=== PATIENT | male | born 1960 | race Caucasian/White ===

== ENCOUNTER 2024-06-16 05:19 | Observation (INO) | payer OTHER, MEDICARE ==
[2024-06-16] MEDS ORDERED: KETOROLAC 30 MG/ML INJ ONE (06:04)
[2024-06-16] MEDS ORDERED: ONDANSETRON 4 MG/2 ML VIAL ONE (06:04)
[2024-06-16] MEDS ORDERED: FAMOTIDINE 20 MG/2 ML VIAL IV ONE (06:04)
[2024-06-16 06:21] LABS: Absolute Eosinophils 0.1 K/uL (0-0.5); Absolute Lymphocytes (CBC) 1.4 K/uL (0.7-4.9); Absolute Monocytes 1.3 K/uL (0.1-1.3); Absolute Neutrophil 10.8 K/uL (1.8-8.0); Basophils % 0.3 % (0-1.3); Eosinophils % 0.6 % (0-4.4); Hematocrit 48.4 % (39.6-49.0); Hemoglobin 16.6 g/dL (13.6-17.9); Lymphocytes % 10.2 % (15.3-44.8); MCH 31.9 pg (27.0-35.0); MCHC 34.2 g/dL (32.0-36.0); MCV 93.2 fL (80-100); MPV 8.7 fL (7.6-11.3); Monocytes % 9.6 % (3.3-12.3); Neutrophils % 79.3 % (41.7-73.7); Platelets 230 thou/uL (152-406); Red Cell Distribution Width 12.5 % (12.1-15.2)
[2024-06-16 06:23] LABS: Specific Gravity > 1.030 (1.005-1.030); Sqamous Epithelial None Seen /HPF (None Seen); Urine Bacteria None Seen /HPF (<20); Urine Bilirubin NEGATIVE (Negative); Urine Blood Negative (Negative); Urine Clarity Clear (Clear); Urine Color Light-Yellow (Yellow); Urine Culture Reflex Order NOT NEEDED; Urine Glucose 4+ (Over) (Negative); Urine Ketones 1+ (Negative); Urine Microscopic Reflex YN ORDER UMIC; Urine Nitrite NEGATIVE (Negative); Urine Protein NEGATIVE (Negative); Urine RBC None Seen /HPF (None Seen); Urine Urobilinogen Normal (Normal); Urine WBC <5 /HPF (<5)
[2024-06-16 06:41] LABS: Albumin 3.8 g/dL (3.4-5.0); Albumin/Globulin Ratio 0.8 (1.1-1.8); Anion Gap 10.4 mEq/L (5.0-15.0); Bilirubin Total 1.4 mg/dL (0.2-1.0); Globulin 4.6 g/dL (2.3-3.5); Potassium 4.4 mEq/L (3.5-5.1); Protein, Total 8.4 g/dL (6.4-8.2)
--- NOTE | 2024-06-16 07:34 | RAD REPORT ---
EXAMINATION: CT ABDOMEN AND PELVIS WITH CONTRAST CLINICAL INDICATION: ABD PAIN TECHNIQUE: CT abdomen and pelvis was performed, after the administration of IV contrast, [facility]. Axial, sagittal and coronal reconstructions were obtained. One or more of the following dose reduction techniques were used: Automated exposure control, adjustment of the mA and k V according to patient size, and iterative reconstruction. Unless otherwise specified, incidental findings do not require dedicated imaging follow-up. COMPARISON: No prior exam. FINDINGS: LOWER CHEST: The visualized lung bases are clear. LIVER: Normal in size and contour. No focal lesion. Grossly unremarkable gallbladder. SPLEEN: Normal size. No focal lesion. PANCREAS: No mass, ductal dilation, or antonio-pancreatic fluid. ADRENALS: Normal; no mass. KIDNEYS: Normal size and contour. No hydronephrosis. GASTROINTESTINAL TRACT: There is a focally prominent 25 mm lesion seen along the medial margin of the descending colon. This appears moderately inflamed. APPENDIX: Normal appendix. LYMPH NODES: No lymphadenopathy. MUSCULOSKELETAL: No acute or suspicious osseous abnormality. ADDITIONAL FINDINGS: Small fat-containing umbilical hernia. IMPRESSION: Focally prominent 25 mm lesion projects from the ascending colon medial margin. There is moderate thi ckening of the wall and surrounding inflammation. Differential considerations would include focal acute diverticulitis or inflammatory mass. Follow-up colonoscopy would be recommended for further avis luation.
[2024-06-16] MEDS ORDERED: MORPHINE 4 MG/ML SYR IV PRN (07:43)
[2024-06-16] MEDS ORDERED: ONDANSETRON 4 MG/2 ML VIAL IV PRN (07:43)
--- NOTE | 2024-06-16 07:51 | EDPHYS ---
Physician Documentation [facility] Name: Haris Sandoval Age: 64 yrs Sex: Male : 1960 Arrival Date: 06/16/2024 Time: 05:19 Bed 2 Private MD: ED Physician Anderson Horne HPI: 06/16 07:20 This 64 yrs old Male presents to ER via Ambulatory with complaints of Stomach pain. ms3 07:20 Haris Sandoval is a 64-year-old male presenting to the emergency department with ms3 stomach pain. He reports experiencing similar stomach pain intermittently, typically after consuming greasy food. However, this episode is more severe and persistent. The pain is located on the left lower abdomen. Patient states he developed right flank pain after hitting golf balls on . The pain increases with movement. He also reports feeling slightly nauseous and having a bit of diarrhea. He has a history of type 2 diabetes.. Historical: - Allergies: 05:58 No Known Allergies; vc1 - Home Meds: 05:58 metformin 500 mg Oral tablet 2 tabs 2 times per day [Active]; Farxiga 5 mg oral tablet vc1 daily [Active]; - PMHx: 05:58 Diabetes mellitus; vc1 - PSHx: 05:58 Appendectomy; vc1 - Immunization history:: Client reports having NOT received the Covid vaccine. Flu vaccine is up to date. - Infectious Disease History:: Denies. - Social history:: Smoking status: Patient denies any tobacco usage or history of. ROS: 07:20 Constitutional: Negative for fever, and chills. Cardiovascular: Negative for chest ms3 pain, and palpitations. Respiratory: Negative for shortness of breath, cough, wheezing, and pleuritic chest pain, 07:20 MS/Extremity: Negative for injury and deformity, Skin: Negative for injury, rash, and discoloration, 07:20 Abdomen/GI: Positive for abdominal pain, nausea, Exam: 07:20 Constitutional: This is a well developed, well nourished patient who is awake, alert, ms3 and in no acute distress. Neck: Trachea midline, no cervical lymphadenopathy. Supple, full range of motion without nuchal rigidity, or vertebral point tenderness. No Meningismus. Chest/axilla: Normal chest wall appearance and motion. Nontender with no deformity. Cardiovascular: Regular rate and rhythm with a normal S1 and S2. No gallops, murmurs, or rubs. Normal PMI, no JVD. No pulse deficits. Respiratory: Lungs have equal breath sounds bilaterally, clear to auscultation and percussion. No rales, rhonchi or wheezes noted. No increased work of breathing, no retractions or nasal flaring. Abdomen/GI: Soft, non-tender, with normal bowel sounds. No distension or tympany. No guarding or rebound. No evidence of tenderness throughout. Skin: Warm, dry with normal turgor. Normal color with no rashes, no lesions, and no evidence of cellulitis. MS/ Extremity: Pulses equal, no cyanosis. Neurovascular intact. Full, normal range of motion. Vital Signs: 05:56 BP 135 / 88; Pulse 94; Resp 14; Temp 98.4; Pulse Ox 97% ; Weight 58.97 kg; Height 5 ft. vc1 5 in. ; Pain 9/10; 06:15 BP 123 / 85; Pulse 84; Resp 18; Pulse Ox 97% on R/A; ay 07:00 BP 142 / 71; Pulse 85; Resp 16; Pulse Ox 96% ; bp 09:00 BP 129 / 75; Pulse 81; Resp 16; Pulse Ox 98% ; bp 05:56 Body Mass Index 21.63 (58.97 kg, 165.1 cm) vc1 05:56 Pain Scale: Adult vc1 Aman Coma Score: 06:40 Eye Response: spontaneous(4). Motor Response: obeys commands(6). Verbal Response: ay oriented(5). Total: 15. MDM: 05:54 Medical Screening Exam initiated ms3 07:20 Differential diagnosis: bowel obstruction, diverticulitis, non-specific abd pain. ms3 07:49 Data reviewed: vital signs, nurses notes, lab test result(s), radiologic studies, and ms3 as a result, I will admit patient. Consideration of Admission/Observation Patient was admitted/placed on observation. Management of patient was discussed with the following: Hospitalist: Dr Patel. I considered the following discharge prescriptions or medication management in the emergency department Medications were administered in the Emergency Department. See MAR. Care significantly affected by the following chronic conditions: Diabetes. Counseling: I had a detailed discussion with the patient and/or guardian regarding the historical points, exam findings, and any diagnostic results supporting the discharge/admit diagnosis, lab results, radiology results, the need for further work-up and treatment in the hospital. ED course: Discussed plan for observation with patient. He understands/ agrees with plan. All questions answered.. 06/16 05:55 Order name: CBC with Diff; Complete Time: 06:48 ms3 06/16 05:55 Order name: CMP; Complete Time: 06:48 ms3 06/16 05:55 Order name: Lipase; Complete Time: 06:48 ms3 06/16 05:55 Order name: Urinalysis w/ reflexes; Complete Time: 06:48 ms3 06/16 07:47 Order name: CBC with Automated Diff EDMS 06/16 07:51 Order name: Blood Culture Adult (2) ms3 06/16 07:51 Order name: Lactate w/ 2H reflex if indic. ms3 06/16 07:51 Order name: Protime (+inr) ms3 06/16 07:51 Order name: Ptt, Activated ms3 06/16 08:47 Order name: Protime (+INR) EDMS 06/16 08:47 Order name: PTT, Activated Partial Thromb EDMS 06/16 08:54 Order name: Lactate w/ 2H reflex if indic. EDMS 06/16 05:55 Order name: CT Abd/Pelvis - IV Contrast Only; Complete Time: 08:13 ms3 06/16 07:51 Order name: EKG; Complete Time: 07:52 ms3 06/16 05:55 Order name: IV Saline Lock; Complete Time: 06:13 ms3 06/16 05:55 Order name: Labs collected and sent; Complete Time: 06:14 ms3 06/16 07:51 Order name: Accucheck; Complete Time: 08:28 ms3 06/16 07:51 Order name: Cardiac monitoring; Complete Time: 08:05 ms3 06/16 07:51 Order name: EKG - Nurse/Tech; Complete Time: 08:28 ms3 06/16 07:51 Order name: IV Saline Lock - Large Bore; Complete Time: 08:05 ms3 06/16 07:51 Order name: O2 Per Protocol; Complete Time: 08:05 ms3 06/16 07:51 Order name: O2 Sat Monitoring; Complete Time: 08:05 ms3 06/16 07:51 Order name: Vital Signs; Complete Time: 08:05 ms3 Administered Medications: 06:12 Drug: Famotidine IVP 20 mg IVP once; dilute with 10 mL 0.9% NaCl; give over 2 minutes dd2 Route: IVP; Site: right antecubital; 09:01 Follow up: Response: No adverse reaction bp 06:13 Drug: TORadol - Ketorolac IVP 15 mg IVP once Route: IVP; Site: right antecubital; dd2 09:01 Follow up: Response: No adverse reaction bp 06:13 Drug: Ondansetron IVP 4 mg IVP once; over 2 minutes Route: IVP; Site: right antecubital;dd2 09:01 Follow up: Response: No adverse reaction bp 08:32 Drug: metroNIDAZOLE IVPB 500 mg 100 ml IVPB at 200 ml/hr once over 30 mins Volume: 100 bp ml; Route: IVPB; Rate: 200 ml/hr; Infused Over: 30 mins; Site: right antecubital; 08:56 Follow up: IV Status: Completed infusion bp 08:56 Drug: levofloxacin IVPB 500 mg 100 ml IVPB once over 60 mins Volume: 100 ml; Route: bp IVPB; Infused Over: 60 mins; Site: right antecubital; 09:01 Follow up: IV Status: Infusion continued upon admission bp Disposition Summary: 06/16/24 07:51 Hospitalization Ordered Notes: Hospitalization Status: Observation ms3 Provider: Ron Patel [facility] ms3 Condition: Stable ms3 Problem: new ms3 Symptoms: are unchanged ms3 Bed/Room Type: Standard ms3 Room Assignment: 219(06/16/24 08:07) iw Diagnosis - Diverticulitis of large intestine without perforation or abscess without bleeding ms3 - Lower abdominal pain, unspecified ms3 - Elevated blood-pressure reading, without diagnosis of hypertension ms3 Forms: - Medication Reconciliation Form ms3 - SBAR form ms3 - Leadership Thank You Letter ms3 Signatures: Dispatcher [employer] Madhavi Richard RN RN iw Peltier, Brian RN RN Anderson Johnson DO DO ms3 Shellie Reyes RN RN vc1 TITO GUAMAN RN RN dd2 Corrections: (The following items were deleted from the chart) 07:50 07:20 Transition of care: After a detail discussion of the patient's case, care is ms3 transferred to Tulio Fraser MD ms3 08:07 07:51 ms3 iw
--- NOTE | 2024-06-16 07:51 | ER ---
Nurse's Notes [facility] Name: Haris Sandoval Age: 64 yrs Sex: Male : 1960 Arrival Date: 06/16/2024 Time: 05:19 Bed 2 Private MD: Diagnosis: Diverticulitis of large intestine without perforation or abscess without bleeding;Lower abdominal pain, unspecified;Elevated blood-pressure reading, without diagnosis of hypertension Presentation: 06/16 05:56 Chief complaint: Patient states: abdominal pain and left side pain that started vc1 night. Worse with movement. "I'm unable to sleep because it hurts so bad.". Coronavirus screen: Client denies travel out of the [place] in the last 14 days. At this time, the client does not indicate any symptoms associated with coronavirus-19. Ebola Screen: Patient negative for fever greater than or equal to 101.5 degrees Fahrenheit, and additional compatible Ebola Virus Disease symptoms Patient denies exposure to infectious person. Patient denies travel to an Ebola-affected area in the 21 days before illness onset. No symptoms or risks identified at this time. Initial Sepsis Screen: Does the patient meet any 2 criteria? No. Patient's initial sepsis screen is negative. Does the patient have a suspected source of infection? No. Patient's initial sepsis screen is negative. Risk Assessment: Do you want to hurt yourself or someone else? Patient reports no desire to harm self or others. Onset of symptoms was June 14, 2024. Care prior to arrival: None. Activity prior to arrival: None. Mechanism of Injury: No Mechanism of Injury. Transition of care: patient was not received from another setting of care. 05:56 Method Of Arrival: Ambulatory vc1 05:56 Acuity: NIKIA 3 vc1 Triage Assessment: 06:00 General: Appears in no apparent distress. uncomfortable, slender, well groomed, well vc1 developed, well nourished, Behavior is calm, cooperative, appropriate for age. Pain: Complains of pain in anterior aspect of right lateral abdomen and left lower quadrant Pain radiates to right lower quadrant Pain currently is 9 out of 10 on a pain scale. Quality of pain is described as sharp, Also complains of nausea. EENT: No deficits noted. No signs and/or symptoms were reported regarding the EENT system. Neuro: Level of Consciousness is awake, alert, obeys commands, Oriented to person, place, time, situation, Appropriate for age. Cardiovascular: Capillary refill < 3 seconds Patient's skin is warm and dry. Respiratory: Airway is patent Respiratory effort is even, unlabored, Respiratory pattern is regular, symmetrical. GI: Abdomen is flat, non-distended, Reports lower abdominal pain, diarrhea, nausea. : No deficits noted. No signs and/or symptoms were reported regarding the genitourinary system. Derm: Skin is intact, is healthy with good turgor, Skin is dry, Skin is normal, Skin temperature is warm. Musculoskeletal: Circulation, motion, and sensation intact. Range of motion: intact in all extremities. Historical: - Allergies: 05:58 No Known Allergies; vc1 - Home Meds: 05:58 metformin 500 mg Oral tablet 2 tabs 2 times per day [Active]; Farxiga 5 mg oral tablet vc1 daily [Active]; - PMHx: 05:58 Diabetes mellitus; vc1 - PSHx: 05:58 Appendectomy; vc1 - Immunization history:: Client reports having NOT received the Covid vaccine. Flu vaccine is up to date. - Infectious Disease History:: Denies. - Social history:: Smoking status: Patient denies any tobacco usage or history of. Screenin:00 [facility] ED Fall Risk Assessment (Adult) History of falling in the last 3 months, vc1 including since admission No falls in past 3 months (0 pts) Confusion or Disorientation No (0 pts) Intoxicated or Sedated No (0 pts) Impaired Gait No (0 pts) Mobility Assist Device Used No (0 pt) Altered Elimination No (0 pt) Score/Fall Risk Level 0 - 2 = Low Risk Oriented to surroundings, Maintained a safe environment, Educated pt \\T\\ family on fall prevention, incl call for assistance when getting out of bed. Abuse screen: Denies threats or abuse. Nutritional screening: No deficits noted. Tuberculosis screening: No symptoms or risk factors identified. Assessment: 06:40 General: Appears in no apparent distress. uncomfortable, Behavior is calm, cooperative. ay Pain: Complains of pain in abdomen and right lower quadrant and left lower quadrant and anterior aspect of right lateral abdomen Pain currently is 4 out of 10 on a pain scale. Neuro: Level of Consciousness is awake, alert, obeys commands, Oriented to person, place, time, situation, Speech is normal. Cardiovascular: Capillary refill < 3 seconds. Respiratory: Airway is patent Respiratory effort is even, unlabored, Respiratory pattern is regular, symmetrical. GI: Bowel sounds present X 4 quads. Abd is soft Abdomen is tender to palpation X 4 quads. : No signs and/or symptoms were reported regarding the genitourinary system. EENT: No signs and/or symptoms were reported regarding the EENT system. Derm: No signs and/or symptoms reported regarding the dermatologic system. Musculoskeletal: No signs and/or symptoms reported regarding the musculoskeletal system. 08:30 Reassessment: REPORT FAXED FOR 219. bp 09:00 Reassessment: PT SERGIO. bp Vital Signs: 05:56 BP 135 / 88; Pulse 94; Resp 14; Temp 98.4; Pulse Ox 97% ; Weight 58.97 kg; Height 5 ft. vc1 5 in. ; Pain 9/10; 06:15 BP 123 / 85; Pulse 84; Resp 18; Pulse Ox 97% on R/A; ay 07:00 BP 142 / 71; Pulse 85; Resp 16; Pulse Ox 96% ; bp 09:00 BP 129 / 75; Pulse 81; Resp 16; Pulse Ox 98% ; bp 05:56 Body Mass Index 21.63 (58.97 kg, 165.1 cm) vc1 05:56 Pain Scale: Adult vc1 Aman Coma Score: 06:40 Eye Response: spontaneous(4). Motor Response: obeys commands(6). Verbal Response: ay oriented(5). Total: 15. ED Course: 05:26 Patient arrived in ED. ra3 05:38 Anderson Horne DO is Attending Physician. ms3 05:53 Checo Warren, RN is Primary Nurse. ay 05:58 Triage completed. vc1 06:00 Arm band placed on right wrist. vc1 06:00 Patient has correct armband on for positive identification. Bed in low position. Call vc1 light in reach. Provided Education on: call light. Pulse ox on. NIBP on. 06:14 CBC with Diff Sent. ay 06:14 CMP Sent. ay 06:14 Lipase Sent. ay 06:14 Urinalysis w/ reflexes Sent. ay 06:40 No provider procedures requiring assistance completed. Inserted saline lock: 20 gauge ay in right antecubital area, using aseptic technique. 07:15 CT Abd/Pelvis - IV Contrast Only In Process Unspecified. EDMS 07:22 Attending Physician role handed off by Anderson Horne DO ms3 07:22 Tulio Fraser MD is Attending Physician. ms3 07:42 Anderson Horne DO is Attending Physician. ms3 07:50 Ron Patel MD is Hospitalizing Provider. ms3 08:17 Patient admitted, IV remains in place. ko1 08:35 Blood Culture Adult (2) Sent. ko1 08:35 Lactate w/ 2H reflex if indic. Sent. ko1 08:35 Protime (+inr) Sent. ko1 08:35 Ptt, Activated Sent. ko1 08:35 CBC with Automated Diff Sent. ko1 Administered Medications: 06:12 Drug: Famotidine IVP 20 mg IVP once; dilute with 10 mL 0.9% NaCl; give over 2 minutes dd2 Route: IVP; Site: right antecubital; 09:01 Follow up: Response: No adverse reaction bp 06:13 Drug: TORadol - Ketorolac IVP 15 mg IVP once Route: IVP; Site: right antecubital; dd2 09:01 Follow up: Response: No adverse reaction bp 06:13 Drug: Ondansetron IVP 4 mg IVP once; over 2 minutes Route: IVP; Site: right antecubital;dd2 09:01 Follow up: Response: No adverse reaction bp 08:32 Drug: metroNIDAZOLE IVPB 500 mg 100 ml IVPB at 200 ml/hr once over 30 mins Volume: 100 bp ml; Route: IVPB; Rate: 200 ml/hr; Infused Over: 30 mins; Site: right antecubital; 08:56 Follow up: IV Status: Completed infusion bp 08:56 Drug: levofloxacin IVPB 500 mg 100 ml IVPB once over 60 mins Volume: 100 ml; Route: bp IVPB; Infused Over: 60 mins; Site: right antecubital; 09:01 Follow up: IV Status: Infusion continued upon admission bp Medication: 06:00 VIS not applicable for this client. vc1 Outcome: 07:51 Decision to Hospitalize by Provider. ms3 08:16 Admitted to Med/surg ko1 08:16 Condition: stable 08:16 Instructed on the need for admit, 08:57 Admitted to Med/surg accompanied by tech, via wheelchair, room 219, with chart, ko1 09:03 Patient left the ED. bp Signatures: Dispatcher [employer] EDMS Dayron Presley, RN RN bp Anderson Horne, DO ms3 Shellie Reyes, RN RN vc1 Linda Barrett RN RN ko1 Fawn Lauren ra3 TITO GUAMAN RN RN dd2 Checo Warren RN RN ay
[2024-06-16] MEDS ORDERED: Levofloxacin500mg IV 500 MG/100 ML BAG IV SCH (08:00)
[2024-06-16] MEDS ORDERED: Levofloxacin500mg IV 500 MG/100 ML BAG IV ONE (08:08)
[2024-06-16] MEDS ORDERED: METRONIDAZOLE 500mg IVPB 500 MG/100 ML BAG IV ONE (08:08)
[2024-06-16 08:47] LABS: PT Prothrombin Time 12.3 SECONDS (9.4-12.5); Protime INR 1.1
[2024-06-16] MEDS: METRONIDAZOLE 500mg IVPB 500 MG/100 ML BAG IV SCH ×2 (09:00→16:48)
[2024-06-16 09:29] VITALS: O2SAT 98
[2024-06-16 11:52] VITALS: BMI 21.6
[2024-06-16] MEDS ORDERED: GLUCAGON 1 MG/VIAL IM PRN (12:03)
[2024-06-16] MEDS ORDERED: D10W 125 ML IV PRN (12:03)
[2024-06-16] MEDS: INSULIN REGULAR (HUMAN) 100 UNIT/ML SQ SCH (12:03)
[2024-06-16] MEDS: GABAPENTIN 100 MG CAP PO SCH (13:38)
[2024-06-17] MEDS: Levofloxacin500mg IV 500 MG/100 ML BAG IV SCH (08:00)
[2024-06-17] MEDS: ASPIRIN EC 81 MG TAB PO SCH (10:07)
[2024-06-17] MEDS: CITALOPRAM 10 MG TABLET PO SCH (10:07)
[2024-06-17 13:06] VITALS: BP 133/78; TEMP 97.3
--- NOTE | 2024-06-17 15:07 | DS ---
Date of Discharge: 06/17/2024 Disposition: Discharged to go home. Physical Examination: HEENT: Unremarkable. Lungs: Clear to auscultation. Heart: Sounds normal. Abdomen: Soft, bowel sounds normal. No guarding, rigidity, and his tenderness has completely resolv ed. Bowel sounds normoactive no distention. Extremities: No leg edema. Discharge Medications And Instructions: 1.Continue all prior home medication except start metformin as of tomorrow. 2.Start following new medications and prescription will be sent to [facility]. 3.Levaquin 500 mg take 1 tablet by mouth daily with food for 10 days. 4.Metronidazole 500 mg take 1 tablet by mouth 3 times a day with food for 10 days. If he started to have nausea problem, then lower dose of this antibiotic, metronidazole and take half a tablet 3 time s a day for a total of 10 days. 5.Take [id number] Metamucil fiber gummies and the patient to take 3 fiber gummies daily. 6.Diet clear liquid diet today and starting tomorrow advance diet as tolerated. 7.Avoid knots, popcorn, tomato, strawberries, etc. 8.Follow up at my office next week on 06/19 2024. 9.Follow up with Dr. Sampson to schedule colonoscopy to be done during first or second week of 2024. 10.Return to emergency room. Hospital Course: The patient is a 64-year-old male patient who came into emergency room m ore information we managed him to emergency room. [facility] today's [facility] His WBC count was likely need to rule out colonic mass. There was colonic in flammation and bleeding. All these details were discussed with the patient. He was admitted to . Discharge Medications And Instructions Labs: Reviewed. Discharge Diagnosis: 1.Acute diverticulitis. 2.Hypertension. 3.Hyperlipidemia. Total time spent 30 minutes. SAVANAH/MODL Voice ID: [id number] Report ID: [id number]
--- NOTE | 2024-06-17 18:52 | HP ---
Date of Admission: 06/16/2024 Chief Complaint: Abdominal pain. History Of Present Illness: This is a 64-year-old very pleasant male patient who came into emergency room with 3-4 days history of right-sided abdominal pain. The patient's pain has been intermittent. No aggravating or relieving factors. Denies any constipation but has had some diarrhea in last cou ple of days, and for example, he reports that yesterday he had 4-5 loose bowel movements. Denies any recent travel. Denies any recent antibiotic use. The patient denies any fever, chills, nausea, vom iting. He came in with this worsening of abdominal pain and after he was evaluated in ER, he was adm itted to the hospital and I saw him in the emergency room. Allergies: TO STATIN DRUGS CAUSING MYALGIA. Medications: Farxiga 10 mg daily in morning with breakfast, escitalopram 20 mg daily, gabapentin 300 mg three times a day, metformin 500 mg takes 2 tablets two times a day. Review of Systems: GI: As mentioned above. All other systems reviewed and negative. Past Medical History: Significant for hypertension, hyperlipidemia, type 2 diabetes mellitus with di abetic neuropathy, anxiety, depression, benign prostatic hypertrophy, peripheral neuropathy, gastroes ophageal reflux disease. Past Surgical History: Appendectomy in 2006, and removal of scar tissue from ureter. Family History: Father is alive and has heart disease, hypertension. Mother , had anxiety, Alzh eimer disease and hypertension. Social History: Negative for smoking. Use of alcohol, occasional beer. Physical Examination: Vital Signs: Height 5 feet 6 inches, weight pounds, temperature , pulse ___, respiratory rate , blood pressure , oxygen saturation . General: Awake, alert, oriented, not in distress. HEENT: Head atraumatic, normocephalic. Conjunctivae nonerythematous. Sclerae white. Mouth, no thr ush or edema noted. Ears/Nose, no mass, lesion, discharge noted. Neck: Supple. No JVD, lymph nodes, bruit, thyromegaly noted. Lungs: Bilateral good equal air entry. Clear to auscultation. No rhonchi. No rales. Heart: Normal heart sounds, no murmur or gallop. Abdomen: Soft. Bowel sounds normal. No guarding. No rigidity. No rebound tenderness. No abdomin al distention. No hepatosplenomegaly or bruit. Bowel sounds are normoactive. The patient has moder ate amount of tenderness in right upper quadrant region. Extremities: No leg edema. No calf tenderness. Skin: No rash, ulcer, cellulitis. Lymphatics: No lymph node enlargement in neck, supraclavicular, infraclavicular region. Neuro: No focal neurological deficit. Chest: Unremarkable. External Genitalia: Deferred. Rectal: Deferred. Laboratory Data: WBC 13.6, hemoglobin 16.6, platelets 230. Sodium 135, potassium 4.4, chloride 101, bicarb 28, BUN 22, creatinine 1.08, glucose 164, total bilirubin 1.4, AST 14, ALT 20, alkaline phosp hatase 116, lipase 42. His CAT scan of abdomen and pelvis with contrast shows focally prominent 25 m m lesion projects from ascending colon medial margin with moderate thickening of the wall and surroun ding inflammation. No evidence of any abscess, free fluid, or air under diaphragm, and I have commun icated with radiologist, Dr. Franklin, and discussed this CAT scan finding. It appears to be likely due to diverticulitis type of problem, but it is in an unusual location. Impression: 1.Acute diverticulitis. 2.Hypertension. 3.Hyperlipidemia. 4.Type 2 diabetes mellitus with diabetic neuropathy. 5.Anxiety. 6.Depression. 7.Gastroesophageal reflux disease. 8.Benign prostatic hypertrophy. Plan: We will go ahead and admit the patient to the hospital for further evaluation and management o f this problem. The patient is appropriate for observation. I will go ahead and start him on clear liquid diet and IV antibiotic Levaquin and metronidazole per order. Diabetes will be managed with sl iding scale insulin. No need for further intervention for hypertension or hyperlipidemia, at this ti me. What it appears this patient has acute diverticulitis, although it is unusual location as it is including right side of the colon instead of descending colon or sigmoid colon area, which would be t ypical location and I have discussed all these details with him. I also have discussed with him that we need to do colonoscopy 6-8 weeks from today to make sure that there is no evidence of any colon m ass like colon cancer. His last colonoscopy was in [address] Sampson, and after that, [place] actually had [place] out of the [place] and recently came back. The patient reports that he had Cologuard test d one while he was out of state about 5 years ago, so definitely colonoscopy should be done in 6-8 week s as suggested and he is going to follow up with Dr. Sampson as per my recommendation. I will see him tomorrow for followup and possible discharge to go home tomorrow depending on his condition. Total time spent today was 80 minutes including communication with the emergency room physician, ann antonio of emergency room visit record, review of last office visit record from 05/02/2024, and review of last colonoscopy result done at our hospital on 08/16/2011 showing hemorrhoid and polyp. SAVANAH/MODL Voice ID: [id number]
== END 2024-06-17 11:57 | disposition home or self-care (01) ==
LOC: ER 05:19 → ERHOLD 07:43 → 2ND 08:42
PROVIDERS: ADMIT Internal Medicine; ATTEND Internal Medicine
DX: K57.92 Diverticulitis of intestine, part unspecified, without perforation or abscess without bleeding (principal); I10 Essential (primary) hypertension; E78.5 Hyperlipidemia, unspecified; E11.40 Type 2 diabetes mellitus with diabetic neuropathy, unspecified; F41.9 Anxiety disorder, unspecified; F32.A Depression, unspecified; K21.9 Gastro-esophageal reflux disease without esophagitis; N40.1 Benign prostatic hyperplasia with lower urinary tract symptoms
CPT/HCPCS: 87040 ×2; 85025; 81001; 36415; 85610; 82947 ×6; 83605; 85730; 83690; 80053; 74177; Q9967; J2405; 96365; 96375; 99285; G0378